=== PATIENT | female | born 1990 | race Caucasian/White ===

== ENCOUNTER 2017-08-16 11:33 | Emergency (ER) | payer OTHER ==
[2017-08-16] MEDS ORDERED: NORCO 5/325 PO ONE (15:25)
[2017-08-16] MEDS ORDERED: ZOFRAN ODT PO ONE (15:25)
--- NOTE | 2017-08-16 15:32 | Emergency Department Report ---
Chief Complaint: Head Injury Stated Complaint: HEAD PAIN Time Seen by Provider: 08/16/17 14:47 - HPI History of Present Illness: The patient's 27-year-old female presents for evaluation of headache. The patient reports constant moderate to severe aching headache, exacerbated with bright lights or loud sounds, for the past one day after striking her head on a lamp at work. She says that she has experienced recurrent nausea without emesis and dizziness with position changes. The patient denies fever, neck pain , neck stiffness, hearing changes, smell or taste changes, paresthesias, facial drooping, slurred speech, seizure-like activity, urine or bowel incontinence or retention, or other focal neurological deficit. - Exam Vital Signs: Vital Signs 08/16/17 12:41 Temperature 98.4 F Pulse Rate 72 Respiratory 16 Rate Blood Pressure 131/103 O2 Sat by Pulse 97 Oximetry MSE screening note: Focused history and physical exam performed. Due to findings the following was ordered: ED Disposition for MSE Condition: Stable Referrals: PRIMARY CARE, [Primary Care Provider] - 3-5 Days
[2017-08-16 16:56] LABS: HCG Qualitative,Urine Negative (Negative)
--- NOTE | 2017-08-16 17:19 | Cat Scan Report ---
FINAL REPORT PROCEDURE: CT HEAD/BRAIN WO CON TECHNIQUE: Computerized tomography of the head was performed without contrast material. DLP 1803.77 mGy-cm. HISTORY: Headache. COMPARISON: No prior studies are available for comparison. FINDINGS: Skull and scalp: Normal. Paranasal sinuses: Normal. Ventricles and subarachnoid spaces: Normal. Cerebrum: No evidence of hemorrhage, acute infarction or mass. Subtle high attenuation in the sellar region. Cerebellum and brainstem: No evidence of hemorrhage, acute infarction or mass. Vasculature: Normal. Comments: None. IMPRESSION: Subtle high attenuation in the sellar region, likely volume averaging/artifact. Consider MRI of the brain for further characterization if there is continued clinical concern for sellar/pituitary pathology and if patient has no contraindication to MRI. Otherwise unremarkable CT scan of the brain.
--- NOTE | 2017-08-16 18:16 | Emergency Department Report ---
ED Head Trauma HPI - General Chief complaint: Head Injury Stated complaint: HEAD PAIN Time Seen by Provider: 08/16/17 14:47 Source: patient Mode of arrival: Ambulatory Limitations: No Limitations - History of Present Illness Initial comments: This is a 27-year-old female nontoxic, well nourished in appearance, no acute signs of distress presents to the ED with c/o of headache. Patient stated she was at work and hit her head against the lamp. Patient denies any loss of consciousness. Patient denies any fever, chills, neck pain, neck stiffness, chest pain, shortness of breathe, hearing changes, smell or taste changes, paresthesias, bladder or bowel incontinence or retention, facial drooping, or slurred speech. Patient denies thunderclap headache. Patient describes headache as diffuse and gradual. Patient denies any visual changes. Patient stated she did develop some spotting after incident. Patient denies any allergies or significant past medical history. MD Complaint: head injury -: This morning Mechanism of Injury: work related injury Location: frontal Loss of Consciousness: no Previous Trauma to this Area: No Place: work Radiation: none Severity: mild Severity scale (0 -10): 8 Quality: aching Consistency: constant Provoking factors: none known Other Injuries: none Associated Symptoms: denies other symptoms. denies: confusion, amnesia, repetitive questioning, vision changes, nausea, vomiting, vertigo, syncope, numbness, weakness, tingling, neck pain - Related Data Previous Rx's Medication Instructions Recorded Last Taken Type Acetaminophen/Codeine [Tylenol 1 tab PO Q6H PRN #15 tab 08/16/17 Unknown Rx /Codeine # 3 tab] Allergies/Adverse reactions: Allergies Allergy/AdvReac Type Severity Reaction Status Date / Time No Known Allergies Allergy Unverified 08/16/17 12:41 ED Review of Systems ROS: Stated complaint: HEAD PAIN Other details as noted in HPI Constitutional: denies: chills, fever Eyes: denies: eye pain, eye discharge, vision change ENT: denies: ear pain, throat pain Respiratory: denies: cough, shortness of breath, wheezing Cardiovascular: denies: chest pain, palpitations Endocrine: no symptoms reported Gastrointestinal: denies: abdominal pain, nausea, diarrhea Genitourinary: denies: urgency, dysuria, discharge Musculoskeletal: denies: back pain, joint swelling, arthralgia Skin: denies: rash, lesions Neurological: headache. denies: weakness, paresthesias Psychiatric: denies: anxiety, depression Hematological/Lymphatic: denies: easy bleeding, easy bruising ED Past Medical Hx - Past Medical History Hx Hypertension: Yes Additional medical history: Polycytic kidney, bicupid aortic valve - Surgical History Additional Surgical History: Ovarian cyst remove and nerve removed from right knee - Social History Smoking Status: Never Smoker Substance Use Type: Alcohol - Medications Home Medications: Home Medications Medication Instructions Recorded Confirmed Last Taken Type Acetaminophen/Codeine [Tylenol 1 tab PO Q6H PRN #15 tab 08/16/17 Unknown Rx /Codeine # 3 tab] ED Physical Exam - General Limitations: No Limitations General appearance: alert, in no apparent distress - Head Head exam: Present: atraumatic, normocephalic - Eye Eye exam: Present: normal appearance, PERRL, EOMI Pupils: Present: normal accommodation - Expanded Eye Exam Expanded Visual acuity (R) = 20/: 30 Visual acuity (L) = 20/: 40 With correction: No - ENT ENT exam: Present: normal exam, normal orophraynx, mucous membranes moist, TM's normal bilaterally, normal external ear exam - Expanded ENT Exam Expanded Ear exam: Present: normal external inspection - Neck Neck exam: Present: normal inspection, full ROM. Absent: tenderness, meningismus, lymphadenopathy, thyromegaly - Respiratory Respiratory exam: Present: normal lung sounds bilaterally. Absent: respiratory distress, wheezes, rales, rhonchi, stridor, chest wall tenderness, accessory muscle use, decreased breath sounds, prolonged expiratory - Cardiovascular Cardiovascular Exam: Present: regular rate, normal rhythm, normal heart sounds. Absent: bradycardia, tachycardia, irregular rhythm, systolic murmur, diastolic murmur, rubs, gallop - GI/Abdominal GI/Abdominal exam: Present: soft, normal bowel sounds. Absent: distended, tenderness, guarding, rebound, rigid, diminished bowel sounds - Rectal Rectal exam: Present: deferred - Extremities Exam Extremities exam: Present: normal inspection, full ROM, normal capillary refill. Absent: tenderness, pedal edema, joint swelling, calf tenderness - Back Exam Back exam: Present: normal inspection, full ROM. Absent: tenderness, CVA tenderness (R), CVA tenderness (L), muscle spasm, paraspinal tenderness, vertebral tenderness, rash noted - Neurological Exam Neurological exam: Present: alert, oriented X3, CN II-XII intact, normal gait, reflexes normal - Expanded Neurological Exam Expanded Patient oriented to: Present: person, place, time Cranial nerves: EOM's Intact: Normal, Gag Reflex: Normal, Tongue Deviation: Normal, Nystagmus: Normal, Facial Sensation: Normal, Facial Palsy with Forehead Movement: Normal, Facial Palsy without Forehead Movement: Normal Cerebellar function: Finger to Nose: Normal, Heel to Lama: Normal, Romberg: Normal Upper motor neuron: Rodríguez Neglect: Normal, Pronator Drift: Normal, Babinski Sign : Normal, Sensory Extinction: Normal Sensory exam: Upper Extremity Light Touch: Normal, Upper Extremity Pin Prick: Normal, Upper Extremity Temperature: Normal, UE 2 Point Discrimination: Normal, Lower Extremity Light Touch: Normal, Lower Extremity Pin Prick: Normal, Lower Extremity Temperature: Normal, LE 2 Point Discrimination: Normal Motor strength exam: RUE: 5, LUE: 5, RLE: 5, LLE: 5 DTR: bicep (R): 2+, bicep (L): 2+, tricep (R): 2+, tricep (L): 2+, knee (R): 2+ , knee (L): 2+, ankle (R): 2+, ankle (L): 2+ Best Eye Response (Debbi): (4) open spontaneously Best Motor Response (Debbi): (6) obeys commands Best Verbal Response (Debbi): (5) oriented Debbi Total: 15 - Psychiatric Psychiatric exam: Present: normal affect, normal mood - Skin Skin exam: Present: warm, dry, intact, normal color. Absent: rash ED Course Vital Signs 08/16/17 12:41 Temperature 98.4 F Pulse Rate 72 Respiratory 16 Rate Blood Pressure 131/103 O2 Sat by Pulse 97 Oximetry - Reevaluation(s) Reevaluation #1: 08/16/17 18:19 Patient is speaking in full sentences with no signs of distress noted. - Consultations Consultation #1: 08/16/17 18:20 Patient has been consulted with Dr. Bustamante about patient history, physical exam, and labs and examined and screened patient and agrees to ED plan of care and discharge plan of care. - Lab Data Lab Results 08/16/17 Range/Units 16:17 Urine HCG, Qual Negative (Negative) - Medical Decision Making This is a 27-year-old female that presents with concussion. Patient is stable and was examined by me and Dr. Bustamante. CT of head/brain without contrast obtained with no evidence of hemorrhage, acute infection or mass but there is subtle high attenuation in the sellar region. Patient is notified of the Ct results with no questions noted. Upon exam, patient is neurologically stable. Normal EOM movemnt of bilateral eyes. Normal visual. Patient stated symptoms of headache is improving and subsiding after medical treatment in the ED. patient was instructed to observe symptoms of increased headache, thunderclap headache, blurry vision or any worsening of visual changes and to return to emergency room as was possible. Patient is discharged with Tylenol 3. Patient was instructed referred to Follow-up with a primary care doctor in 3-5 days or if symptoms worsen and continue return to emergency room as soon as possible. At time of discharge, the patient does not seem toxic or ill in appearance. No acute signs of distress noted. Patient agrees to discharge treatment plan of care. No further questions noted by the patient. - NEXUS Criteria Focal neurological deficit present: No Midline spinal tenderness present: No Altered level of consciousness: No Intoxication present: No Distracting injury present: No NEXUS results: C-Spine can be cleared clinically by these results. Imaging is not required. Critical care attestation.: If time is entered above; I have spent that time in minutes in the direct care of this critically ill patient, excluding procedure time. ED Disposition Clinical Impression: Concussion Qualifiers: Encounter type: initial encounter Loss of consciousness presence/duration: without LOC Qualified Code(s): S06.0X0A - Concussion without loss of consciousness, initial encounter Disposition: DC-01 TO HOME OR SELFCARE Is pt being admited?: No Does the pt Need Aspirin: No Condition: Stable Instructions: Acetaminophen/Codeine (By mouth) Additional Instructions: Follow-up with a primary care doctor in 3-5 days or if symptoms worsen and continue return to emergency room as soon as possible. Prescriptions: Acetaminophen/Codeine [Tylenol /Codeine # 3 tab] 1 tab PO Q6H PRN #15 tab PRN Reason: Pain Referrals: PRIMARY CARE, [Primary Care Provider] - 3-5 Days HODA MURPHY MD [Staff Physician] - 3-5 Days [facility] [Outside] - 3-5 Days [facility] [Outside] - 3-5 Days Forms: Work/School Release Form(ED)
[2017-08-16 18:22] VITALS: BP 134/93
== END 2017-08-16 18:36 | disposition home or self-care (01) ==
LOC: ED 11:33
DX: S06.0X0A Concussion without loss of consciousness, initial encounter (principal); I10 Essential (primary) hypertension; X58.XXXA Exposure to other specified factors, initial encounter; Y93.89 Activity, other specified; Y92.89 Other specified places as the place of occurrence of the external cause; Y99.8 Other external cause status
CPT/HCPCS: 70450; 81025; 99284; Q0162